=== PATIENT | female | born 1985 | race African-American/Black ===

== ENCOUNTER → 2019-05-29 | Outpatient (CLI) | payer BC ==
--- NOTE | 2019-05-29 12:45 | CARD ---
MR#: [id number] Date of Study: 05/29/2019 Ordering Physician: LAYA SOTELO, Referring Physician: LAYA SOTELO, Tech: Michelle Munoz APPROVED REPORT EXAM: Two-dimensional and M-mode echocardiogram with Doppler and color Doppler. Other Information Quality : AverageHR: 70bpm Technically limited study due to body habitus. INDICATION Palpitations 2D DIMENSIONS RVDd2.2 (2.9-3.5cm)Left Atrium(2D)3.2 (1.6-4.0cm) IVSd1.0 (0.7-1.1cm)Aortic Root(2D)2.6 (2.0-3.7cm) LVDd4.6 (3.9-5.9cm)LVOT Diameter1.9 (1.8-2.4cm) PWd0.9 (0.7-1.1cm)LVDs2.9 (2.5-4.0cm) FS (%) 37.7 %SV66.1 ml LVEF(%)67.8 (>50%) Aortic Valve AoV Peak Zhao.101.5cm/sAoV VTI19.2cm AO Peak GR.4.1mmHgLVOT Peak Zhao.81.0cm/s LVOT VTI 16.72cmAO Mean GR.2mmHg NURIS (VMAX)1.35dt9QSA (VTI)2.56cm2 Mitral Valve MV E Dhdeitea94.6cm/sMV DECEL SYSA117jv MV A Lbxuivkd02.3cm/sMV MCS23iv E/A Ratio1.3MVA (PHT)3.69cm2 TDI E/Lateral E'7.7E/Medial E'9.0 Pulmonary Valve PV Peak Saghtnou869.4cm/sPV Peak Grad.4mmHg Tricuspid Valve TR P. Zqhijndw383kq/sRAP OAWRPTSB1seWz TR Peak Gr.32ocDsYIUP55baPb Pulmonary Vein S1 Sgifqpui80.7cm/sD2 Msuhqbkb28.4cm/s PVa epskhfyt694qbvm LEFT VENTRICLE The left ventricle is normal size. There is normal left ventricular wall thickness. The left ventricu lar systolic function is normal and the ejection fraction is within normal range. The Ejection Fracti on is 55-60%. There is normal LV segmental wall motion. The left ventricular diastolic function and f illing is normal for age. RIGHT VENTRICLE The right ventricle is normal size. There is normal right ventricular wall thickness. The right ventr icular systolic function is normal. ATRIA The left atrium size is normal. The right atrium size is normal. The interatrial septum is intact wit h no evidence for an atrial septal defect or patent foramen ovale as noted on 2-D or Doppler imaging. AORTIC VALVE The aortic valve is normal in structure and function. Doppler and Color Flow revealed trace aortic re gurgitation. There is no significant aortic valvular stenosis. MITRAL VALVE The mitral valve is normal in structure and function. There is no evidence of mitral valve prolapse. There is no mitral valve stenosis. Doppler and Color-flow revealed trace mitral regurgitation. TRICUSPID VALVE The tricuspid valve is normal in structure and function. Doppler and Color Flow revealed trace tricus pid regurgitation with an estimated PAP of 30 mmHg. There is no tricuspid valve prolapse or vegetatio n. There is no tricuspid valve stenosis. PULMONIC VALVE The pulmonic valve is not well visualized. Doppler and Color Flow revealed mild pulmonic valvular reg urgitation. There is no pulmonic valvular stenosis. GREAT VESSELS The aortic root is normal in size. The IVC is normal in size and collapses >50% with inspiration. PERICARDIAL EFFUSION There is no evidence of significant pericardial effusion. Critical Notification Critical Value: No <Conclusion> The left ventricular systolic function is normal and the ejection fraction is within normal range. Th e Ejection Fraction is 55-60%. There is normal LV segmental wall motion. Signed by : Laya Sotelo, Electronically Approved : 05/29/2019 12:45:21
== END | disposition home or self-care (01) ==
LOC: ECHO 10:42
PROVIDERS: ATTEND Internal Medicine Cardiovascular Disease
DX: I37.1 Nonrheumatic pulmonary valve insufficiency (principal)
CPT/HCPCS: 93306

== ENCOUNTER 2021-09-28 06:56 | Day surgery (SDC) | payer OTHER ==
[~2021-09-28] VITALS: Ht 158.8 cm; Wt 71.3 kg
[~2021-09-28 06:56] MED LIST: ALBU2.5V8 IH; HYDROmorphone 2 MG/ML VIAL IVP PRN; IV RINGERS,LACTATED 1000ML 1,000 ML IV SCH; MORPHINE SULFATE 2 MG/ML INJ. IVP PRN; PROCHLORPERAZINE 10 MG/2 ML VIAL. IVP PRN; fentaNYL PF VIAL 100 MCG/2 ML VIAL IVP PRN
[2021-09-28] MEDS ORDERED: ONDANSETRON PF 4 MG/2 ML VIAL. ONE (07:08)
[2021-09-28] MEDS ORDERED: LIDOCAINE 1% PF 5 ML VIAL. ONE (07:08)
[2021-09-28] MEDS ORDERED: PROPOFOL 10 MG/ML (20ML) VIAL. IV ONE (07:08)
[2021-09-28] MEDS ORDERED: DEXAMETHASONE SOD PHOS 4 MG/ML VIAL ONE (07:08)
[2021-09-28] MEDS ORDERED: fentaNYL PF VIAL 100 MCG/2 ML VIAL ONE (07:10)
[2021-09-28 07:17] VITALS: BP 117/72
[2021-09-28] MEDS ORDERED: VASOPRESSIN 20 UNIT/ML VIAL. ONE (07:40)
[2021-09-28] MEDS ORDERED: SEVOFLURANE 16 TO 30 MINUTES. IH ONE (08:51)
[2021-09-28] MEDS ORDERED: GLYCOPYRROLATE 1 MG/5 ML VIAL. ONE (09:05)
--- NOTE | 2021-09-28 09:19 | PDOC4 ---
BRIEF OPERATIVE NOTE Date: Sep 28, 2021 Pre-Op Diagnosis menorrhagia Post-Op Diagnosis same Procedure Performed diag hysteroscoy with novasure endometrial ablation Surgeon Dr. uLcie Salgado Anesthesiologist Dr. Palmer Anesthesia Type: General Blood Loss <5cc IV Fluid see anesthesia Urine Output 50cc straight cath Specimens Obtained none Findings uterus 7-8cm functional l 4.5 functional w 3.2 time 1min 50sec of ablation time Complications none Operative Note [id number] LUCIE SALGADO MD Sep 28, 2021 09:19
[2021-09-28] MEDS ORDERED: KETOROLAC 30 MG/ML VIAL. IVP ONE (09:30)
[2021-09-28] MEDS ORDERED: NALOXONE 0.4 MG/ML VIAL. IV PRN (09:30)
[2021-09-28] MEDS ORDERED: SIMETHICONE 80 MG TAB.CHEW PO PRN (09:30)
[2021-09-28] MEDS ORDERED: MAG HYDROX/ALUMINUM HYD/SIMETH 30 ML ORAL.SUSP PO PRN (09:30)
[2021-09-28] MEDS ORDERED: CALCIUM CARBONATE 500 MG TAB.CHEW PO PRN (09:30)
[2021-09-28] MEDS ORDERED: HYDROcodone/APAP 5/325MG 1 TAB TABLET PO PRN (09:30)
[2021-09-28] MEDS ORDERED: 0.9 % SODIUM CHLORIDE 10 ML DISP.SYRIN. IV PRN (09:30)
[2021-09-28] MEDS ORDERED: diphenhydrAMINE 50 MG/ML VIAL IV PRN (09:30)
[2021-09-28] MEDS ORDERED: diphenhydrAMINE HCL 25 MG CAPSULE PO PRN (09:30)
[2021-09-28 09:33] VITALS: BP 122/67
--- NOTE | 2021-09-28 09:54 | OP ---
DATE OF SURGERY: 09/28/2021 PREOPERATIVE DIAGNOSIS: Menorrhagia. POSTOPERATIVE DIAGNOSIS: Menorrhagia. PROCEDURE: Diagnostic hysteroscopy and NovaSure endometrial ablation. SURGEON: Lucie Walls MD [employer] LABOR: OR personnel. ANESTHESIOLOGIST: Kyle Pamler MD ANESTHESIA: General. BLOOD LOSS: Less than 5 mL. URINE OUTPUT: 50 mL straight cath prior to procedure. IV FLUIDS: Please see anesthesia records. COMPLICATIONS: None. No specimens, no drains or tubes. FINDINGS: She had a uterus that sounded to 7-8 cm. Functional length was set at 4.5, width was 3.2. Ablation time was 1 minute 50 seconds. Findings on the diagnostic hysteroscopy, normal bilateral tubal ostia were seen. She just had abundant thickened tissue, but she had a negative biopsy in the office. Prior to this, no D and C was performed. DESCRIPTION OF PROCEDURE: This patient was taken to the operating room where general anesthesia was placed. The patient was placed in dorsal lithotomy position in Kaz stirrups. The patient's vagina was prepped and draped in the normal sterile fashion and a straight cath urine was done prior to starting. Upon my arrival, a time-out was performed. Once everyone agreed on the patient, the site, the procedure, the procedure was initiated. A weighted speculum was placed in the patient's vagina. A single-tooth tenaculum was used to grasp the anterior lip of the cervix. She was dilated to an 8-9, sounded to 7-8 cm. The diagnostic hysteroscopy was performed with just tissue only. No polyps or fibroids were seen, just thickened tissue, but bilateral tubal ostia were seen and otherwise normal-appearing uterine cavity. At this point, the device was set at 4, opened up fine, went to 4.5 on the functional length and opened up to about 3.2 for the width. The device was enabled. The cavity assessment check was performed. Once it passed the cavity assessment check, it went straight into the ablation process, which lasted about 1 minute and 50 seconds. There were no complications. The device was removed. The tenaculum was removed. There was minimal bleeding. The speculum was removed. All counts were correct x 2 by OR personnel. The patient was awakened from anesthesia and is being brought to recovery room right now in stable condition. HAI/GERSON DR: HAI/maryjane TID: [id number]
== END 2021-09-28 10:10 | disposition home or self-care (01) ==
LOC: SURG 06:56
PROVIDERS: ATTEND Obstetrics & Gynecology
DX: N92.0 Excessive and frequent menstruation with regular cycle (principal); J45.909 Unspecified asthma, uncomplicated; F90.9 Attention-deficit hyperactivity disorder, unspecified type; Z79.899 Other long term (current) drug therapy; Z98.890 Other specified postprocedural states; Z88.0 Allergy status to penicillin; Z88.1 Allergy status to other antibiotic agents; Z88.2 Allergy status to sulfonamides; Z82.49 Family history of ischemic heart disease and other diseases of the circulatory system
CPT/HCPCS: 58563; 81025; A4930; J1100; J1885; J2405; J2704; J3010; J3490